=== PATIENT | female | born 1990 | race Two or more races ===

== ENCOUNTER 2021-06-09 14:47 | Emergency (ER) | payer OTHER ==
[~2021-06-09] VITALS: Ht 170.2 cm; Wt 114.0 kg
[2021-06-09] MEDS ORDERED: ERYTHROMYCIN 0.5% 3.5 GM TUBE OPHTHALMIC OINTMENT OS ONE (17:45)
[2021-06-09] MEDS ORDERED: IBUPROFEN 600 MG TABLET PO ONE (18:15)
[2021-06-09 18:16] VITALS: BP 141/92
== END 2021-06-09 18:47 | disposition home or self-care (01) ==
LOC: EMS 14:47
DX: H01.004 Unspecified blepharitis left upper eyelid (principal); E11.9 Type 2 diabetes mellitus without complications; I10 Essential (primary) hypertension
CPT/HCPCS: 99283